=== PATIENT | female | born 1985 | race Caucasian/White ===

== ENCOUNTER 2017-08-20 13:20 | Emergency (ER) | payer OTHER ==
[~2017-08-20] VITALS: Ht 152.4 cm; Wt 72.6 kg
[~2017-08-20 13:20] MED LIST: AMOXICILLIN500 M1 PO; AMOXICILLIN500 MG PO; CLINDAMYCIN HC300 MG PO; LIDOCAINE20 MG/1 M5 MM; MOTRIN800 MG PO; NAPROSYN500 MG PO; NAPROXEN500 MG PO; NO MEDICATIONS; PEN-VEE K,VEET500 MG PO; PERCOCET 5/31 TABLET PO; PERCOCET 7.51 TABLET PO; TRAMADOL HCL50 MG PO; ULTRAM50 MG PO
[2017-08-20 18:30] VITALS: BP 113/67
== END 2017-08-20 18:30 | disposition home or self-care (01) ==
LOC: EME 13:20
DX: F11.20 Opioid dependence, uncomplicated (principal); R40.0 Somnolence; F12.90 Cannabis use, unspecified, uncomplicated; F41.9 Anxiety disorder, unspecified; F17.200 Nicotine dependence, unspecified, uncomplicated
CPT/HCPCS: 99281; 99285

== ENCOUNTER 2018-01-21 02:54 | Emergency (ER) | payer OTHER ==
[~2018-01-21] VITALS: Ht 152.4 cm; Wt 75.0 kg
[2018-01-21] MEDS ORDERED: NAPROSYN500 MG PO (03:31)
[2018-01-21] MEDS ORDERED: AUGMENTIN875 MG PO (03:31)
[2018-01-21] MEDS ORDERED: ULTRACET1 TABLET PO (03:31)
[2018-01-21 04:21] VITALS: BP 144/83
== END 2018-01-21 04:22 | disposition home or self-care (01) ==
LOC: EME 02:54
DX: K02.9 Dental caries, unspecified (principal)
CPT/HCPCS: 99281; 99282